=== PATIENT | female | born 1980 | race Caucasian/White ===

== ENCOUNTER 2016-06-29 10:31 | Inpatient (IN) | payer OTHER ==
[~2016-06-29] VITALS: Ht 149.9 cm; Wt 52.5 kg
[~2016-06-29 10:31] MED LIST: AMOXICILLIN500 M1 PO; AMOXICILLIN875 MG PO; CITALOPRAM HBR20 MG PO; CLINDAMYCIN HC300 MG PO; FLEXERIL10 MG PO; LAMOTRIGINE100 MG PO; LORAZEPAM0.5 MG PO; MOTRIN600 MG PO; NAPROSYN500 MG PO; NOHOMEMEDS; NORCO 5/3251 TABLET PO; PAROXETINE HCL40 MG PO; PERCOCET 5/31 TABLET PO; TRAMADOL HCL50 MG PO; TRAZODONE HCL50 MG; TYLENOL WITH C1 EACH PO
[2016-06-29 11:58] LABS: ADD MIUA? YES; BILIRUBIN NEGATIVE; BLOOD SMALL; COLOR YELLOW ((YELLOW)); GLUCOSE (STRIP) NEGATIVE; KETONES NEGATIVE; LEUKOCYTES NEGATIVE; NITRITE NEGATIVE; PROTEIN (STRIP) NEGATIVE; SPECIFIC GRAVITY 1.005 (1.000-1.030); UROBILINOGEN 0.2 MG/DL (0.2-1.0)
[2016-06-29 12:03] LABS: BACTERIA RARE /HPF; CALCIUM OXALATE CRYSTALS 1+ /HPF; EPITHELIAL CELLS 1+ /HPF; MUCUS NONE SEEN /LPF; RED BLOOD CELLS 0-5 /HPF (0-5); WHITE BLOOD CELLS 0-5 /HPF (0-5)
[2016-06-29 12:09] LABS: ADD MEDTOX COMMENT Y; AMPHETAMINE NEGATIVE (500 ng/mL); BARBITURATES NEGATIVE (200 ng/mL); BENZODIAZEPINES NEGATIVE (150 ng/mL); COCAINE NEGATIVE (150 ng/mL); INTERNAL CONTROLS VALID? YES; METHADONE NEGATIVE (200 ng/mL); METHAMPHETAMINE NEGATIVE (500 ng/mL); OPIATES (MORPHINE) NEGATIVE (100 ng/mL); OXYCODONE NEGATIVE (100 ng/mL); PHENCYCLIDINE NEGATIVE (25 ng/mL); PROPOXYPHENE NEGATIVE (300 ng/mL); THC CANNABINOIDS PRESUMPTIVE POSITIVE (50 ng/mL); TRICYCLIC ANTIDEPRESSANTS NEGATIVE (300 ng/mL)
[2016-06-29 12:12] LABS: HEMATOCRIT 42.3 % (36.0-46.0); MCH 29.3 PG (29.0-34.0); MCHC 33.1 G/DL (30.0-36.0); MCV 88.5 FL (83-99); PLATELET COUNT 316 K/uL (156-360); RBC DIS.WIDTH-CV 13.8 % (11.8-14.6); RBC DIS.WIDTH-SD 44.9 % (39-53); RED BLOOD COUNT 4.78 M/uL (3.80-5.20); WHITE BLOOD COUNT 14.7 K/uL (4.1-10.2)
[2016-06-29 12:26] LABS: CHLORIDE 108 mEq/L (99-109); POTASSIUM 3.9 mEq/L (3.7-5.4); SODIUM 140 mEq/L (136-147)
[2016-06-29 12:28] LABS: GLUCOSE 103 mg/dL (70-99)
[2016-06-29 12:29] LABS: ANION GAP 8 MEQ/L (2-14)
[2016-06-29 12:30] LABS: TOTAL BILIRUBIN 0.3 mg/dL (0.0-1.0)
[2016-06-29 12:31] LABS: ALKALINE PHOSPHATASE 77 IU/L (3-129); SERUM ETHYL ALCOHOL < 10 mg/dL
[2016-06-29 12:32] LABS: GFR ESTIMATE (CALCULATED) > 59 mL/min/
[2016-06-29 12:33] LABS: UREA NITROGEN (BUN) 6 mg/dL (9-23)
[2016-06-29 14:38] VITALS: BP 119/81
[2016-06-29 15:27] VITALS: BP 119/81
[2016-06-29] MEDS ORDERED: CLONAZEPAM0.5 MG PO (17:09)
[2016-06-29] MEDS ORDERED: ZIPRASIDONE HCL40 MG PO (17:11)
[2016-06-29] MEDS ORDERED: DESVENLAFAXINE100 MG PO (17:13)
[2016-06-30 08:49] VITALS: BP 101/57
[2016-06-30 15:29] VITALS: BP 106/57
[2016-07-01 08:05] VITALS: BP 90/55
[2016-07-01 16:05] VITALS: BP 104/63
[2016-07-02 07:36] VITALS: BP 97/56
[2016-07-02 15:24] VITALS: BP 114/55
[2016-07-03 08:04] VITALS: BP 93/52
[2016-07-03] MEDS ORDERED: GEODON60 MG PO (10:46)
[2016-07-03] MEDS ORDERED: PAROXETINE HCL20 MG PO (10:46)
== END 2016-07-03 11:51 | disposition home or self-care (01) | DRG 885 ==
LOC: EME 10:31 → EDOF 12:41 → 1WEST 12:41
PROVIDERS: Emergency Medicine
DX: F31.81 Bipolar II disorder (principal); R45.851 Suicidal ideations; Z59.0 Homelessness; F43.23 Adjustment disorder with mixed anxiety and depressed mood; F17.210 Nicotine dependence, cigarettes, uncomplicated; F12.90 Cannabis use, unspecified, uncomplicated
CPT/HCPCS: 80053; 81003; 84999; 85027; 90839; 97150 GO; 97165 GO; 99281; 99284; G0480; Q0177